=== PATIENT | female | born 1950 | race Caucasian/White ===

== ENCOUNTER → 2020-04-16 | Day surgery (SDC) | payer MEDICARE, OTHER ==
[2020-04-16] VITALS (10 sets, daily range): BP systolic 98–114; BP diastolic 55–65
[~2020-04-16] VITALS: Ht 149.9 cm; Wt 68.0 kg
[~2020-04-16] MED LIST: D5 1/2NS 1,000 ML IV SCH; DiphenhydrAMINE 50mg/ml Inj IVP PRN; Glycopyrrolate 0.2mg/ml 1ml Vial ONE; KLONOPIN0.5 MG ORAL; Ketorolac 30mg Inj IV PRN; LR 1000ml 1,000 ML IVLG SCH; LR 1000ml ONE; Lidocaine 1% MPF 10mg/ml 5ml ONE; Midazolam 2mg/2ml Inj ONE; Morphine Sulfate 10mg/ml Inj ONE; Neostigmine 1mg/ml 10ml Inj ONE; ProvayBlue 5mg/ml 10ml amp INJ ONE; Rocuronium Bromide 50mg/5ml Inj IV ONE; Ropivacaine 5mg/ml Vial 30ml INJ ONE; Sodium Chloride 10ml vial INJ ONE; Sterile Water Irrig 1000ml IRRIG ONE; Succinylcholine 20mg/ml 10ml vial ONE; cefOXitin 1gm Inj ONE; cefOXitin 2gm Inj IVP SCH; fentaNYL 100 mcg/2 mL IV ONE
--- NOTE | 2020-04-16 07:48 | Pre-Procedure Note/Attestation ---
Pre-Procedure Note/Attestation Complete Prior to Procedure Planned Procedure: bilateral Procedure Narrative: Bilateral Salpingo-oophorectomy Indications for Procedure Pre-Operative Diagnosis: ovarian cysts, postmenopausal Attestation I attest that I discussed the nature of the procedure; its benefits; risks and complications; and alternatives (and the risks and benefits of such alternativ es), prior to the procedure, with the patient (or the patient's legal termite control service representative). I attest that, if there was a reasonable possibility of needing a blood transfusion, the patient (or the patient's legal termite control service representative) was given the [facility] standardized written summary, pursuant to the Milo Eliazar Blood Safety Act ([place] Health and Safety Code # 1645, as amended). I attest that I re-evaluated the patient just prior to the surgery and that there has been no change in the patient's H&P, except as documented below: Teofilo Da Silva MD Apr 16, 2020 07:48
--- NOTE | 2020-04-16 07:51 | Brief Operative Note ---
Immediate Post Operative Note Operative Note Pre-op Diagnosis: ovarian cysts, postmenopausal Procedure: Bilateral Salpingo-oophorectomy, lysis of bowel adhesions, hysteroscopy, endometrial biopsy Post-op Diagnosis: same as pre-op plus - extensive bowel adhesions s/p previous bowel surgery Findings: consistent w/pre-op dx studies Surgeon: Teofilo Da Silva MD Button Machine Operator: Abbey Block MD Anesthesiologist: Terrell Lawrence MD Anesthesia: general Specimen: yes - BSO, pelvic washings, EMB, Complications: none Condition: stable Fluids: LR @100 cc/hr Estimated Blood Loss: minimal Drains: none Implant(s) used?: No Teofilo Da Silva MD Apr 16, 2020 07:51
--- NOTE | 2020-04-16 08:37 | Anethesia Preoperative Eval ---
Anesthesia Pre-op PMH/ROS General Date of Evaluation: Apr 16, 2020 Time of Evaluation: 07:20 Anesthesiologist: Howard ASA Score: ASA 2 Mallampati Score Class I : Soft palate, uvula, fauces, pillars visible Class II: Soft palate, uvula, fauces visible Class III: Soft palate, base of uvula visible Class IV: Only hard plate visible Mallampati Classification: Class II Surgeon: Rkeha Diagnosis: Abdominal pain Surgical Procedure: D&C, salpingectomy Anesthesia History: none Family History: no anesthesia problems Allergies: Coded Allergies: ACETAMINOPHEN (Verified Allergy, Severe, ITCHING, 04/15/20) HYDROCODONE (Verified Allergy, Severe, ITCHING, 04/15/20) Medications: see eMAR Patient NPO?: Yes Past Medical History Cardiovascular: Denies: HTN, CAD, OR, valve dz, arrhythmia, other Pulmonary: Denies: asthma, COPD, ERIKA, other Gastrointestinal/Genitourinary: Reports: GERD, CRI - elevated Cr., other - Gastric tumor s/p Sx; Denies: ESRD Neurologic/Psychiatric: Reports: depression/anxiety; Denies: dementia, CVA, TIA, other Endocrine: Reports: DM - borderline, hypothyroidism; Denies: steroids, other HEENT: Denies: cataract (L), cataract (R), glaucoma, [place] (L), [place] (R), other Hematology/Immune: Denies: anemia, DVT, bleeding disorder, other Musculoskeletal/Integumentary: Denies: OA, RA, DJD, DDD, edema, other Other: other - overweight PMH Narrative: as above PSxH Narrative: Laparoscopic partial gastrectomy Anesthesia Pre-op Phys. Exam Physician Exam Last Vital Signs Date Time Temp Pulse Resp B/P (MAP) Pulse Ox O2 Delivery O2 Flow Rate FiO2 04/16/20 06:05 97.3 74 18 105/55 97 Room Air Constitutional: NAD Neurologic: CN 2-12 intact Cardiovascular: RRR, no M/R/G Respiratory: CTA Gastrointestinal: S/NT/ND Airway Exam Mallampati Score: Class II MO: full Neck: flexible ROM: limited Teeth: intact Dentures: no upper, no lower Anesthesia Pre-op A/P Labs see chart Studies Pre-op Studies: EKG - SR, CXR - WNL Risk Assessment & Plan Assessment: ASA 2 Plan: GA with ETT Status Change Before Surgery: No Pre-Antibiotics Drug: Cefoxitin 1gr. Given Within 1 Hr of Incision: Yes Time Given: 08:05 Terrell Lawrence MD Apr 16, 2020 08:37
--- NOTE | 2020-04-16 09:37 | Immediate Post-Op Evaluation ---
Immediate Post-Op Evalulation Immediate Post-Op Evalulation Procedure: D&C Hysteroscopy, bylateral salpingoophorectomy Date of Evaluation: Apr 16, 2020 Time of Evaluation: 09:36 IV Fluids: 1000 Blood Products: none Estimated Blood Loss: min Urinary Output: 100 Blood Pressure Systolic: 112 Blood Pressure Diastolic: 56 Pulse Rate: 74 Respiratory Rate: 20 O2 Sat by Pulse Oximetry: 99 Temperature (Fahrenheit): 97.9 Pain Score (1-10): 1 Nausea: No Vomiting: No Complications none Patient Status: reacts, patent, extubated, none Hydration Status: adequate Terrell Lawrence MD Apr 16, 2020 09:37
[2020-04-16] MEDS: Hydromorphone 0.5mg/0.5ml inj IVP PRN ×2 (09:59→10:11)
--- NOTE | 2020-04-16 12:15 | Operative Note - Dictated ---
DATE OF OPERATION: 04/16/2020 PREOPERATIVE DIAGNOSIS: Ovarian cyst. POSTOPERATIVE DIAGNOSES: Ovarian cyst plus extensive pelvic and bowel adhesions. PROCEDURE PERFORMED: 1. Video hysteroscopy with endometrial biopsy. 2. Laparoscopic bilateral salpingo-oophorectomy. 3. Enterolysis. 4. Lysis of pelvic adhesions. 5. Pelvic washings. SURGEON: Teofilo Da Silva MD. BAGEL MAKER: Abbey Block MD. ANESTHESIA: General endotracheal. ANESTHESIOLOGIST: Terrell Lawrence MD. PROCEDURE IN DETAIL: After all the appropriate consents were signed, the patient was brought to the operating room and placed on the table in supine position. General endotracheal anesthesia was induced without complication. The patient was then placed in a dorsal lithotomy position. Perineum, vagina and abdomen were prepped and draped in the usual fashion for the procedure. The patient was then examined under anesthesia. Uterus appeared to be mobile, small. The cervix was then dilated. The video hysteroscope was introduced. Uterine cavity was visualized. The cavity appeared to be within normal limits, although with some internal adhesions. The endometrial curettage was now performed and a uterine manipulator was placed following the curettage. At this point, the abdominal portion of the procedure began were umbilical incision was made. Veress needle was advanced and the abdomen was insufflated to 15 mmHg. The primary 10 mm trocars were placed in the umbilicus. The pelvis was visualized and after multiple intestinal adhesions and pelvic sidewall adhesions were identified to allow the entry of additional trocars. The additional trocars were placed. They were placed bilaterally inferiorly in the pelvis. At this time, the procedure continued with identifying the cystic structure. Pelvic washings were performed and submitted to pathology for evaluation. The tube and ovary on the left side were now elevated. Infundibulopelvic ligament was coagulated and transected. The tube was also transected after being coagulated. The entire complex was elevated and the broad ligament and the remaining tissue was coagulated along with uteroovarian ligament and transected. This freed the ovary which was then placed in the posterior cul-de-sac. The ovary on the right side was now elevated and the same procedure was performed where infundibulopelvic ligament was coagulated and transected followed by the broad ligament followed by the uteroovarian ligament. At this time, both ovaries were fully free. A 10 mm extraction bag was placed in the pelvis and both ovaries were placed in the bag. The bag was removed and the pelvis was now well visualized once again with the laparoscope. Complete hemostasis was achieved. All the areas of dissection and the enterolysis and adhesiolysis were now fully hemostatic. At this time, trocars were removed under direct visualization of the laparoscope. The laparoscope was removed last. All the air was removed from the abdomen and the incisions were closed using 0 Vicryl suture at the fascia layer and Steri-Strips and benzoin at the skin layer. The patient was then placed in the supine position and awakened from general anesthesia. She tolerated the procedure very well. Teofilo Da Silva M.D. DR: Amaya JOB#: [id number] CC:
--- NOTE | 2020-04-16 13:22 | 48 Hour Post Anesthesia Eval ---
Post Anesthesia Evaluation Procedure: D&C Hysteroscopy, bylateral salpingoophorectomy Date of Evaluation: Apr 16, 2020 Time of Evaluation: 13:20 Blood Pressure Systolic: 100 0: 56 Pulse Rate: 78 Respiratory Rate: 22 Temperature (Fahrenheit): 97.8 O2 Sat by Pulse Oximetry: 98 Airway: patent Nausea: No Vomiting: No Pain Intensity: 2 Hydration Status: adequate Cardiopulmonary Status: stable Mental Status/LOC: patient returned to baseline Follow-up Care/Observations: n/a Post-Anesthesia Complications: none Follow-up care needed: ready to discharge Terrell Lawrence MD Apr 16, 2020 13:22
== END | disposition home or self-care (01) ==
LOC: SUR 05:31
DX: N83.202 Unspecified ovarian cyst, left side (principal); N83.201 Unspecified ovarian cyst, right side; N73.6 Female pelvic peritoneal adhesions (postinfective); Z88.6 Allergy status to analgesic agent; K21.9 Gastro-esophageal reflux disease without esophagitis; F32.9 Major depressive disorder, single episode, unspecified; F41.9 Anxiety disorder, unspecified; E11.9 Type 2 diabetes mellitus without complications; E03.9 Hypothyroidism, unspecified; E66.3 Overweight; Z68.30 Body mass index [BMI] 30.0-30.9, adult; Z90.49 Acquired absence of other specified parts of digestive tract
CPT/HCPCS: 58558; 58661; 94003; J0330; J0694; J1170; J1885; J2250; J2270; J2405; J2704; J2710; J2795; J3010; J7030; J7120; U0002; 94150